=== PATIENT | female | born 2000 | race Caucasian/White ===

== ENCOUNTER 2021-08-25 11:43 | Emergency (ER) | payer OTHER ==
[~2021-08-25] VITALS: Ht 162.6 cm; Wt 80.0 kg
--- NOTE | 2021-08-25 12:26 | PHYS DOC ---
Past History Additional Past Medical Histor: herpes 1, hiatal hernia, Past Surgical History: Tonsillectomy, Other Additional Past Surgical Histo: polyp, L ACL, lipoma removed Additional Smoking Information: vape Alcohol Use: Occasionally Adult General Chief Complaint Chief Complaint: HEAD INJURY/TRAUMA [facility] HPI Patient is a 21-year-old female complaining of head pain. Reports injury 48 hours prior, was getting out of the car and hit her right sikh on car door. No loss of consciousness, no changes in motor or sensory or neuro function. States she has had acute pain to right side of her head that resolved with Tylenol which she took yesterday. She has not taken anything since. She was reading online and was concerned about concussion or worse. She is otherwise been at baseline mentation. Does have history of concussion in the past, 2016. No other reportable medical conditions, no medications on a daily basis, specifically no blood thinners Review of Systems Review of Systems Fourteen body systems of review of systems have been reviewed. See HPI for pertinent positives and negative responses, other lorenz all other systems are negative, non-pertinent or non-contributory Allergies Allergies Allergies Coded Allergies Type Severity Reaction Last Updated Verified Cephalosporins Allergy Unknown 08/25/21 Yes Penicillins Allergy Unknown 08/25/21 Yes amoxicillin Allergy Unknown 08/25/21 Yes clindamycin Allergy Unknown 08/25/21 Yes Physical Exam Physical Exam Constitutional: Well developed, well nourished, no acute distress, non-toxic appearance. HENT: Normocephalic, atraumatic, bilateral external ears normal, oropharynx moist, no oral exudates, nose normal. Eyes: PERRLA, EOMI, conjunctiva normal, no discharge. Neck: Normal range of motion, no tenderness, supple, no stridor. Cardiovascular: Heart rate regular, sinus rhythm, no murmurs rubs or gallops Lungs & Thorax: Bilateral breath sounds clear to auscultation Abdomen: Bowel sounds normal, soft, no tenderness, no masses, no pulsatile masses. Nonsurgical abdomen, no peritoneal signs Skin: Warm, dry, no erythema, no rash. Back: No tenderness, no CVA tenderness. Extremities: No tenderness, no cyanosis, no clubbing, ROM intact, no edema. Neurologic: Alert and oriented X 3, cranial nerves II through XII intact, normal motor & sensory function, no focal deficits noted. Psychologic: Affect normal, judgement normal, mood normal. Current Patient Data Vital Signs Vital Signs Date Time Temp Pulse Resp B/P (MAP) Pulse Ox O2 Delivery O2 Flow Rate FiO2 08/25/21 12:00 98.1 65 16 133/90 (104) 100 Room Air EKG EKG [] Radiology/Procedures Radiology/Procedures [] Heart Score C/O Chest Pain: No Risk Factors: Risk Factors: DM, Current or recent (<one month) smoker, HTN, HLP, family history of CAD, obesity. Risk Scores: Risk Factors: DM, Current or recent (<one month) smoker, HTN, HLP, family history of CAD, obesity. Course & Med Decision Making Course & Med Decision Making ABCs unremarkable. I disclosed entirety of ER findings and discussed most likely diagnosis of closed head injury, suspect sequelae of concussion. Other diagnoses were discussed with patient such as intracranial bleed or other potentially life-threatening diagnoses but all deemed less likely causes of patient's presentation. Plan of care discussed at length with need for close outpatient follow-up to review today's ER visit stressed. Strict return precautions were also discussed at length with good understanding verbalized by patient. Patient voiced understanding and agreement with the plan. Patient knows to come back for repeat evaluation if concerning signs or symptoms present prior to outpatient follow-up. Hemodynamically stable, ambulatory and well- appearing at time of disposition. Dragon Disclaimer Dragon Disclaimer This electronic medical record was generated, in whole or in part, using a voice recognition dictation system. Departure Departure: Impression: Primary Impression: Closed head injury Disposition: HOME / SELF CARE / HOMELESS Condition: STABLE Referrals: DENISE BOOTHE DO (PCP) Patient Instructions: Head Injury, Adult Additional Instructions: You were seen for your head injury after hitting it onto a car door. Your exam was normal. You can take ibuprofen (Motrin/Advil) every 6 hours OR acetaminophen (Tylenol) every 4 hours as needed for pain or headache. Read and follow the attached head injury instructions and return as instructed. Return to the Urgent Care or Emergency Room if you have more than 2 episodes of vomiting, passes out, experiences a seizure, seems excessively sleepy, is having trouble talking/walking, isnt acting right, or if you have any other concerns DAVID MARSH DO Aug 25, 2021 12:26
[2021-08-25 13:05] VITALS: BP 128/85
== END 2021-08-25 13:10 | disposition home or self-care (01) ==
LOC: ER 11:43
DX: S09.90XA Unspecified injury of head, initial encounter (principal); W22.8XXA Striking against or struck by other objects, initial encounter; Y93.89 Activity, other specified; Y92.89 Other specified places as the place of occurrence of the external cause; Y99.8 Other external cause status; F17.200 Nicotine dependence, unspecified, uncomplicated
CPT/HCPCS: 99282

== ENCOUNTER 2021-10-04 05:31 | Emergency (ER) | payer OTHER ==
[~2021-10-04] VITALS: Ht 162.6 cm; Wt 76.0 kg
--- NOTE | 2021-10-04 06:06 | PHYS DOC ---
Past History Additional Past Medical Histor: herpes 1, hiatal hernia, Past Surgical History: Tonsillectomy, Other Additional Past Surgical Histo: polyp, L ACL, lipoma removed Alcohol Use: Occasionally Adult General Chief Complaint Chief Complaint: ABDOMINAL PAIN [facility] HPI Patient is a 21-year-old female presenting for abdominal pain. Reports symptom onset was September 16 without any obvious mechanism of injury, trauma, ingestion or other known exacerbating factor. Pain is been intermittent and waxing and waning ever since. States certain positional movements and p.o. ingestion make worse, rest and other body positions make better. Pain is typically located to right upper quadrant and sometimes radiates to her right shoulder. Symptoms have been inconsistent having several episodes throughout the week but reports since yesterday evening she has had a constant sharp pain under her right rib cage which concerned her prompting her to come in. She has no history of any intra-abdominal abnormalities or surgeries. She is on no high risk medications. Denies any history of alcohol or tobacco use, does admit to infrequent marijuana and vaping use. Review of Systems Review of Systems Fourteen body systems of review of systems have been reviewed. See HPI for pertinent positives and negative responses, other lorenz all other systems are negative, non-pertinent or non-contributory Allergies Allergies Allergies Coded Allergies Type Severity Reaction Last Updated Verified Cephalosporins Allergy Unknown 08/25/21 Yes Penicillins Allergy Unknown 08/25/21 Yes amoxicillin Allergy Unknown 08/25/21 Yes clindamycin Allergy Unknown 08/25/21 Yes Physical Exam Physical Exam Constitutional: Well developed, well nourished, no acute distress, non-toxic appearance. HENT: Normocephalic, atraumatic, bilateral external ears normal, oropharynx moist, no oral exudates, nose normal. Eyes: PERRLA, EOMI, conjunctiva normal, no discharge. Neck: Normal range of motion, no tenderness, supple, no stridor. Cardiovascular: Heart rate regular, sinus rhythm, no murmurs rubs or gallops Lungs & Thorax: Bilateral breath sounds clear to auscultation Abdomen: Bowel sounds normal, soft, right upper quadrant tenderness to palpation without guarding or rebound, no masses, no pulsatile masses. Nonsurgical abdomen, no peritoneal signs Skin: Warm, dry, no erythema, no rash. Back: No tenderness, no CVA tenderness. Extremities: No tenderness, no cyanosis, no clubbing, ROM intact, no edema. Neurologic: Alert and oriented X 3, grossly normal motor & sensory function, no focal deficits noted. Psychologic: Odd affect, anxious mood Current Patient Data Vital Signs Vital Signs Date Time Temp Pulse Resp B/P (MAP) Pulse Ox O2 Delivery O2 Flow Rate FiO2 10/04/21 05:31 99.0 81 18 106/73 (84) 99 Room Air Lab Results Laboratory Tests Test 10/04/21 05:52 POC Urine HCG, Qualitative hcg negative (Negative) EKG EKG [] Radiology/Procedures Radiology/Procedures Right upper quadrant ultrasound dated 10/04/2021. No comparison available Clinical data indication: Pain. FINDINGS: Liver is homogeneous. No focal hepatic mass. Intrahepatic and extra hepatic biliary tree normal in caliber. The CBD measures 2 mm. Gallbladder normal in size and echogenicity. No gallstones are seen. No wall thickening or pericholecystic fluid. Right kidney measures 9.6 cm in length without hydronephrosis. Left kidney was not imaged. Limited visualized portions of pancreas aorta and IVC unremarkable. No significant ascites. IMPRESSION: 1. No acute sonographic abnormality. Electronically signed by: Amor Gee MD (10/04/2021 7:03 AM) [facility] Heart Score C/O Chest Pain: No Risk Factors: Risk Factors: DM, Current or recent (<one month) smoker, HTN, HLP, family history of CAD, obesity. Risk Scores: Risk Factors: DM, Current or recent (<one month) smoker, HTN, HLP, family history of CAD, obesity. Course & Med Decision Making Course & Med Decision Making ABCs unremarkable HPI physical exam and comprehensive ER work-up nonconcerning for any emergent or surgical issues Patient does not have an acute abdomen. Discussed likely not emergent or surgical etiology of patient's reported abdominal pain. She has been asymptomatic throughout entirety of ER visit and requesting to leave after discussing all ER findings Disclosed need for close PCP follow-up and subsequent surgeon consultation in outpatient setting if symptoms persist Dragon Disclaimer Dragon Disclaimer This electronic medical record was generated, in whole or in part, using a voice recognition dictation system. Departure Departure: Impression: Primary Impression: Nonspecific abdominal pain Disposition: HOME / SELF CARE / HOMELESS Condition: STABLE Referrals: DENISE BOOTHE DO (PCP) KRYSTIAN FLORES MD Additional Instructions: You have been evaluated in the Emergency Department today for abdominal pain. Your evaluation was not suggestive of any emergent condition requiring medical intervention at this time. However, some abdominal problems make take more time to appear. Therefore, it is important for you to watch for any new symptoms or worsening of your current condition. Please contact your primary care physician as discussed prior to departure. You might benefit from outpatient surgery consultation or other diagnostic work-up for your reported abdominal issues Return to the Emergency Department if you experience worsening pain, persistent fevers greater than 100.4, recurrent vomiting, blood in vomit, blood in stool, dark tarry stool, chest pain, difficulty breathing, or any other concerning symptoms. DAVID MARSH DO Oct 04, 2021 06:06
[2021-10-04 06:33] LABS: BACTERIA,URINE 0 /HPF (0-FEW); BILIRUBIN,URINE SMALL (NEG); CLARITY,URINE HAZY; COLOR,URINE YELLOW; GLUCOSE,URINE NEG (NEG); NITRITE,URINE NEG (NEG); RBC,URINE OCC /HPF (0-2); SQUAMOUS EPITHELIAL CELL,UR MANY /LPF; UROBILINOGEN,URINE 0.2 mg/dL (0.2 mg/dL)
[2021-10-04 07:03] VITALS: BP 104/61
--- NOTE | 2021-10-04 07:06 | RAD ---
Right upper quadrant ultrasound dated 10/04/2021. No comparison available Clinical data indication: Pain. FINDINGS: Liver is homogeneous. No focal hepatic mass. Intrahepatic and extra hepatic biliary tree normal in ca liber. The CBD measures 2 mm. Gallbladder normal in size and echogenicity. No gallstones are seen. No wall thickening or pericholec ystic fluid. Right kidney measures 9.6 cm in length without hydronephrosis. Left kidney was not imaged. Limited visualized portions of pancreas aorta and IVC unremarkable. No significant ascites. IMPRESSION: 1. No acute sonographic abnormality. Electronically signed by: Amor Gee MD (10/04/2021 7:03 AM) [facility]
== END 2021-10-04 07:45 | disposition home or self-care (01) ==
LOC: ER 05:31
DX: R10.11 Right upper quadrant pain (principal); Z88.0 Allergy status to penicillin; Z88.1 Allergy status to other antibiotic agents
CPT/HCPCS: 76705; 81001; 81025; 87086; 99284